=== PATIENT | female | born 1995 | race Asian ===

== ENCOUNTER 2017-04-17 14:48 | Emergency (ER) | payer MEDICAID ==
--- NOTE | 2017-04-17 16:37 | ED Physician Documentation ---
PD HPI HEENT - Stated complaint Stated Complaint: EAR PX - Chief complaint Chief Complaint: Heent - History obtained from History obtained from: Patient PD PAST MEDICAL HISTORY - Past Medical History Past Medical History: No - Past Surgical History Past Surgical History: No - Present Medications Home Medications: Ambulatory Orders Medication Instructions Recorded Confirmed Norgestimate-Ethinyl Estradiol 1 tab PO DAILY 06/10/15 04/17/17 [Ortho Tri-Cyclen 28 Tablet] - Allergies Allergies/Adverse Reactions: Allergies Allergy/AdvReac Type Severity Reaction Status Date / Time No Known Drug Allergies Allergy Verified 04/17/17 15:03 - Social History Does the pt smoke?: No Smoking Status: Never smoker Does the pt drink ETOH?: No Does the pt have substance abuse?: No - Immunizations Immunizations are current?: Yes Immunizations: TDAP current <10years - POLST Patient has POLST: No Results - Vitals Vitals: Vital Signs - 24 hr 04/17/17 15:02 Temperature 36.2 C L Heart Rate 80 Respiratory 12 Rate Blood Pressure 128/72 O2 Saturation 100 Oxygen O2 Source Room air
--- NOTE | 2017-04-17 16:58 | ED Physician Documentation ---
History of Present Illness - Stated complaint Stated Complaint: EAR PX - Chief complaint Chief Complaint: Heent - Additonal information Additional information: hx from pt recent pimple in ear and recent head congestion R ear pain for a few days denies preg Review of Systems Ears: reports: Ear pain : denies: Now EGA PD PAST MEDICAL HISTORY - Past Medical History Past Medical History: No - Past Surgical History Past Surgical History: No - Present Medications Home Medications: Ambulatory Orders Medication Instructions Recorded Confirmed Norgestimate-Ethinyl Estradiol 1 tab PO DAILY 06/10/15 04/17/17 [Ortho Tri-Cyclen 28 Tablet] Neomycin/Polymyx/Hc Otic Drops 4 drops OT QID #1 bottle 04/17/17 [Cortisporin Ear Susp] - Allergies Allergies/Adverse Reactions: Allergies Allergy/AdvReac Type Severity Reaction Status Date / Time No Known Drug Allergies Allergy Verified 04/17/17 15:03 - Social History Does the pt smoke?: No Smoking Status: Never smoker Does the pt drink ETOH?: No Does the pt have substance abuse?: No - Immunizations Immunizations are current?: Yes Immunizations: TDAP current <10years - POLST Patient has POLST: No PD ED PE NORMAL - Vitals Vital signs reviewed: Yes - HEENT HEENT: Other (R AOE, canal red and swollen and tender anterior, TM benign) - Cardiac Cardiac: RRR - Respiratory Respiratory: No respiratory distress, Clear bilaterally Results - Vitals Vitals: Vital Signs - 24 hr 04/17/17 15:02 Temperature 36.2 C L Heart Rate 80 Respiratory 12 Rate Blood Pressure 128/72 O2 Saturation 100 Oxygen O2 Source Room air Departure - Departure Disposition: Home, Self Care Clinical Impression: Otitis externa Qualifiers: Otitis externa type: unspecified type Laterality: right Chronicity: acute Qualified Code(s): H60.501 - Unspecified acute noninfective otitis externa, right ear Condition: Good Instructions: ED Otitis Externa Prescriptions: Neomycin/Polymyx/Hc Otic Drops [Cortisporin Ear Susp] 4 drops OT QID #1 bottle
[2017-04-17 17:21] VITALS: BP 123/84
== END 2017-04-17 17:19 | disposition home or self-care (01) ==
LOC: ED 14:48
DX: H60.501 Unspecified acute noninfective otitis externa, right ear (principal)
CPT/HCPCS: 99283

== ENCOUNTER 2018-05-25 21:18 | Emergency (ER) | payer MEDICAID ==
[2018-05-25 21:53] LABS: BILIRUBIN,URINE NEGATIVE (NEGATIVE); GLUCOSE, URINE (UA) NEGATIVE (NEGATIVE); KETONES,URINE (UA) NEGATIVE (NEGATIVE); LEUKOCYTE ESTERASE, URINE MODERATE (NEGATIVE); NITRITE,URINE NEGATIVE (NEGATIVE); OCCULT BLOOD,URINE LARGE (NEGATIVE); PH,URINE 6.5 PH (5.0-7.5); PROTEIN,URINE NEGATIVE (NEGATIVE); UROBILINOGEN,URINE 0.2 (NORMAL) E.U./dL (NORMAL)
--- NOTE | 2018-05-25 21:57 | ED Physician Documentation ---
PD HPI FEMALE - Stated complaint Stated Complaint: FEMALE - Chief complaint Chief Complaint: UTI - History obtained from History obtained from: Patient - History of Present Illness Timing - onset: Yesterday Timing - details: Gradual onset, Still present Associated symptoms: Dysuria, Urinary frequency Similar symptoms before: Diagnosis Recently seen: Not recently seen - Additional information Additional information: patient is a 22 year old female who is presenting to the emergency department for dysuria and increased urinary frequency. patient states that the symptoms started yesterday. patient reports that she had a uti when she was in high school and this feels the same. Review of Systems Ten Systems: 10 systems reviewed and negative Constitutional: denies: Fever, Chills : reports: Dysuria, Frequency PD PAST MEDICAL HISTORY - Past Medical History Past Medical History: No - Past Surgical History Past Surgical History: No - Present Medications Home Medications: Ambulatory Orders Medication Instructions Recorded Confirmed Norgestimate-Ethinyl Estradiol 1 tab PO DAILY 06/10/15 05/25/18 [Ortho Tri-Cyclen 28 Tablet] Phenazopyridine HCl [Pyridium] 200 mg PO TID PRN #6 tablet 05/25/18 Sulfamethox/Trimeth 800/160 1 each PO BID #10 tablet 05/25/18 [Bactrim Ds 800/160] - Allergies Allergies/Adverse Reactions: Allergies Allergy/AdvReac Type Severity Reaction Status Date / Time No Known Drug Allergies Allergy Verified 05/25/18 21:42 - Social History Does the pt smoke?: No Smoking Status: Never smoker Does the pt drink ETOH?: No Does the pt have substance abuse?: No - Immunizations Immunizations are current?: Yes Immunizations: TDAP current <10years - POLST Patient has POLST: No PD ED PE NORMAL - Vitals Vital signs reviewed: Yes - General General: Alert and oriented X 3, No acute distress - HEENT HEENT: Atraumatic - Cardiac Cardiac: RRR - Respiratory Respiratory: No respiratory distress - Abdomen Abdomen: Non distended - Derm Derm: Normal color, Warm and dry - Extremities Extremities: No deformity - Neuro Eye Opening: Spontaneous Results - Vitals Vitals: Vital Signs - 24 hr 05/25/18 21:39 Temperature 36.4 C L Heart Rate 87 Respiratory 16 Rate Blood Pressure 131/69 H O2 Saturation 100 Oxygen O2 Source Room air - Labs Labs: Laboratory Tests 05/25/18 21:40 Urine Color YELLOW Urine Clarity CLEAR Urine pH 6.5 Ur Specific [place] <=1.005 Urine Protein NEGATIVE Urine Glucose (UA) NEGATIVE Urine Ketones NEGATIVE Urine Occult Blood LARGE H Urine Nitrite NEGATIVE Urine Bilirubin NEGATIVE Urine Urobilinogen 0.2 (NORMAL) Ur Leukocyte Esterase MODERATE H Urine RBC 0-5 Urine WBC 11-25 H Urine WBC Clumps PRESENT Ur Squamous Epith Cells FEW Squamous Urine Bacteria None Seen Ur Microscopic Review INDICATED Urine Culture Comments INDICATED Urine HCG, Qual NEGATIVE PD MEDICAL DECISION MAKING - ED course Complexity details: reviewed old records, reviewed results, re-evaluated patient , considered differential, d/w patient ED course: Patient was seen and examined at bedside. patient's urine was collected and consistent with urinary tract infection. Patient was treated with bactrim and pyridium. Patient required no further work up and was stable for discharge with outpatient follow up. - Sepsis Event Vital Signs: Vital Signs - 24 hr 05/25/18 21:39 Temperature 36.4 C L Heart Rate 87 Respiratory 16 Rate Blood Pressure 131/69 H O2 Saturation 100 Oxygen O2 Source Room air Departure - Departure Disposition: 01 Home, Self Care Clinical Impression: Urinary tract infection Condition: Good Instructions: ED UTI Cystitis Female Follow-Up: primary,care provider [Other] - As Needed Prescriptions: Phenazopyridine HCl [Pyridium] 200 mg PO TID PRN #6 tablet PRN Reason: dysuria Sulfamethox/Trimeth 800/160 [Bactrim Ds 800/160] 1 each PO BID #10 tablet Comments: Your symptoms today are being caused by a urinary tract infection. you had your first dose of antibiotics and you will need to be on them for the next 5 days. you should stay well hydrated. you should follow up with doctor if your symptoms don't improve. you may return to the emergency department at any time for new, worsening or uncontrollable symptoms.
[2018-05-25 22:00] LABS: CLARITY,URINE CLEAR (CLEAR); HCG UR QUAL NEGATIVE
[2018-05-25 22:03] LABS: BACTERIA,URINE None Seen /HPF (None Seen); RBC,URINE 0-5 /HPF (0-5); SQUAMOUS EPITHELIAL CELL,UR FEW Squamous (<= Few); WBC CLUMPS,URINE PRESENT
[2018-05-25] MEDS ORDERED: PHENAZOPYRIDINE 100 MG TABLET PO STA (22:22)
[2018-05-25] MEDS ORDERED: SULFAMETH/TRIMETH DS 800/160 MG TABLET PO STA (22:22)
[2018-05-25 22:32] VITALS: BP 112/70
== END 2018-05-25 22:42 | disposition home or self-care (01) ==
LOC: ED 21:18
DX: N39.0 Urinary tract infection, site not specified (principal)
CPT/HCPCS: 81001; 81025; 87077; 87086; 87181; 99283; A9270; 81003

== ENCOUNTER 2018-06-07 11:29 | Emergency (ER) | payer MEDICAID ==
[2018-06-07 12:07] LABS: BILIRUBIN,URINE NEGATIVE (NEGATIVE); GLUCOSE, URINE (UA) NEGATIVE (NEGATIVE); KETONES,URINE (UA) NEGATIVE (NEGATIVE); LEUKOCYTE ESTERASE, URINE NEGATIVE (NEGATIVE); NITRITE,URINE NEGATIVE (NEGATIVE); OCCULT BLOOD,URINE NEGATIVE (NEGATIVE); PH,URINE 7.5 PH (5.0-7.5); PROTEIN,URINE NEGATIVE (NEGATIVE); UROBILINOGEN,URINE 0.2 (NORMAL) E.U./dL (NORMAL)
[2018-06-07 12:09] LABS: CLARITY,URINE CLEAR (CLEAR); HCG UR QUAL NEGATIVE
--- NOTE | 2018-06-07 12:41 | ED Physician Documentation ---
PD HPI ABD PAIN - Stated complaint Stated Complaint: ABD PX/CRAMPING - Chief complaint Chief Complaint: Abd Pain - History obtained from History obtained from: Patient - History of Present Illness Timing - onset: How many days ago (few) Timing - duration: Days (few) Timing - details: Gradual onset, Still present, Waxing and waning Quality: Cramping, Aching Location: Suprapubic, LLQ Radiation: No: Lower back Improved by: Meds (ibuprofen). No: Eating, BM Worsened by: No: Eating, Breathing, Position Associated symptoms: No: Fever, Nausea, Vomiting, Diarrhea, Dysuria (she had had that couple weeks ago and was Rx with Bactrim then changed to ?Keflex after culture results. Says the dysuria improved and was well. Has been done with abx for few days prior to onset of the current abd cramping.), Weight loss Similar symptoms before: Has not had sx before Recently seen: Emergency Dept (for UTI symptoms) Review of Systems Constitutional: denies: Fever, Chills, Myalgias Nose: denies: Rhinorrhea / runny nose, Congestion Throat: denies: Sore throat Respiratory: denies: Dyspnea, Cough : reports: LMP (2 weeks ago). denies: Discharge, Vaginal bleeding, Missed period Skin: denies: Rash, Lesions PD PAST MEDICAL HISTORY - Past Medical History Cardiovascular: None Respiratory: None Neuro: None MATE SHIP: None - Past Surgical History Past Surgical History: No - Present Medications Home Medications: Ambulatory Orders Medication Instructions Recorded Confirmed Norgestimate-Ethinyl Estradiol 1 tab PO DAILY 06/10/15 05/25/18 [Ortho Tri-Cyclen 28 Tablet] Docusate Sodium 100 mg PO DAILY #15 capsule 06/07/18 Fluconazole [Diflucan] 150 mg PO ONCE #1 tablet 06/07/18 - Allergies Allergies/Adverse Reactions: Allergies Allergy/AdvReac Type Severity Reaction Status Date / Time No Known Drug Allergies Allergy Verified 06/07/18 11:36 - Social History Does the pt smoke?: No Smoking Status: Never smoker Does the pt drink ETOH?: No Does the pt have substance abuse?: No - Immunizations Immunizations are current?: Yes Immunizations: TDAP current <10years - POLST Patient has POLST: No PD ED PE NORMAL - Vitals Vital signs reviewed: Yes - General General: Alert and oriented X 3, No acute distress, Well developed/nourished - HEENT HEENT: Pharynx benign - Neck Neck: Supple, no meningeal sign, No adenopathy - Cardiac Cardiac: RRR, No murmur - Respiratory Respiratory: Clear bilaterally - Abdomen Abdomen: Normal bowel sounds, Soft, Non distended - Female Female : Staff Consultant present, Other (external normal. vault with a lot of thicker white discharge and some cerivcal irritation that looks like yeast infection. ) - Rectal Rectal: Deferred - Back Back: No CVA TTP Results - Vitals Vitals: Vital Signs - 24 hr 06/07/18 06/07/18 11:33 15:19 Temperature 36.7 C Heart Rate 79 71 Respiratory 16 12 Rate Blood Pressure 107/55 L 108/65 O2 Saturation 99 100 Oxygen O2 Source Room air - Labs Labs: Microbiology 06/07/18 16:39 Wet Prep - Final Vaginal Laboratory Tests 06/07/18 11:44 Urine Color YELLOW Urine Clarity CLEAR Urine pH 7.5 Ur Specific [place] 1.015 Urine Protein NEGATIVE Urine Glucose (UA) NEGATIVE Urine Ketones NEGATIVE Urine Occult Blood NEGATIVE Urine Nitrite NEGATIVE Urine Bilirubin NEGATIVE Urine Urobilinogen 0.2 (NORMAL) Ur Leukocyte Esterase NEGATIVE Ur Microscopic Review NOT INDICATED Urine Culture Comments NOT INDICATED Urine HCG, Qual NEGATIVE PD MEDICAL DECISION MAKING - ED course Complexity details: reviewed results (there is 3 cm ovarian cyst but no signs of free fluid. This is small and so less likely to cause the pelvic/abd pains. Pelvic does show a lot of discharge that is thick and white c/w yeast and some mild appearance of cervicitis. She had had constipation too for several days and that can be giving the lower/left abd cramps. No suspicion for appendix nor gallbladder. ), considered differential, d/w patient - Sepsis Event Vital Signs: Vital Signs - 24 hr 06/07/18 06/07/18 11:33 15:19 Temperature 36.7 C Heart Rate 79 71 Respiratory 16 12 Rate Blood Pressure 107/55 L 108/65 O2 Saturation 99 100 Oxygen O2 Source Room air Departure - Departure Disposition: 01 Home, Self Care Clinical Impression: Pelvic pain, Yeast vaginitis Constipation Qualifiers: Constipation type: unspecified constipation type Qualified Code(s): K59.00 - Constipation, unspecified Ovarian cyst Qualifiers: Laterality: left Qualified Code(s): N83.202 - Unspecified ovarian cyst, left side Condition: Stable Record reviewed to determine appropriate education?: Yes Instructions: ED Vaginal Infec Fungal Rosalind Follow-Up: Nemesio Carpenter MD [Primary Care Provider] - Prescriptions: Docusate Sodium 100 mg PO DAILY #15 capsule Fluconazole [Diflucan] 150 mg PO ONCE #1 tablet Comments: There is a small 3 cm cyst on the left side actually on your ultrasound though it looks like a simple cyst and is small sized and no signs of leaking or rupture so I do not think that is the cause of your pain. You do have what appears to be a yeast vaginitis and this is more likely to be irritating the uterus and causing some pains. This would be a common consequence from the recent antibiotics. You were given an antifungal tablet here and you can repeat that in 3 or 4 days. I would also use docusate and drink lots of fluids for the constipation. This may be causing some of the cramping and pains as well. Recheck if not improved over the next couple of days. Use ibuprofen 3 times a day as needed for pains. Forms: Activity restrictions Discharge Date/Time: 06/07/18 17:02
[2018-06-07 15:21] VITALS: BP 108/65
--- NOTE | 2018-06-07 15:37 | Ultrasound Report ---
Procedure Date: 06/07/2018 Accession Number: [id number] / [id number] Procedure: US - Pelvic w/Transvag+Doppler Ltd CPT Code: FULL RESULT: EXAM: PELVIC ULTRASOUND EXAM DATE: 06/07/2018 03:09 PM. CLINICAL HISTORY: Lower abd pain for few days. COMPARISON: None. TECHNIQUE: Realtime transabdominal pelvic scan performed to identify the uterus and adnexa and as an overview of other pelvic structures, followed by transvaginal scan to provide greater detail of the uterus and adnexa, with static image documentation. FINDINGS: Uterus: 8.7 x 5.9 x 3.3 cm, volume 88.5 cc. Anteverted position. The myometrium is heterogeneous without a focal mass. Masses: None. Endometrium: 4.4 mm. Normal. Cervix: Unremarkable. Right Ovary: 2.9 x 1.5 x 1.6 cm, volume 3.6 cc. Normal echotexture and blood flow. Left Ovary: 4.3 x 4.1 x 3.1 cm, volume 28.5 cc. There is an anechoic follicle or simple cyst measuring 3.4 x 3.7 x 2.7 cm. Blood flow is present on Doppler. Free Fluid: Small Other: None. IMPRESSION: 1. Dominant follicle or simple cyst in left ovary measuring 3. 7 cm in maximum diameter. 2. Blood flow present in both ovaries. RADIA
[2018-06-07] MEDS ORDERED: DOCUSATE SODIUM 100 MG CAPSULE PO STA (16:45)
[2018-06-07] MEDS ORDERED: FLUCONAZOLE 100 MG TABLET PO STA (16:45)
== END 2018-06-07 17:02 | disposition home or self-care (01) ==
LOC: ED 11:29
DX: R10.2 Pelvic and perineal pain (principal); B37.3 Candidiasis of vulva and vagina; K59.00 Constipation, unspecified; N83.202 Unspecified ovarian cyst, left side
CPT/HCPCS: 76830; 76856; 81003; 81025; 87210; 87491; 87591; 93976; 99283; A9270; 80048; 81001; 87086

== ENCOUNTER 2018-06-13 18:11 | Emergency (ER) | payer MEDICAID ==
--- NOTE | 2018-06-13 18:35 | ED Physician Documentation ---
PD HPI ABD PAIN - Stated complaint Stated Complaint: Constipated - Chief complaint Chief Complaint: Abd Pain - History obtained from History obtained from: Patient - History of Present Illness Timing - onset: Other (This is a previously healthy newly 22-year-old whose had lower abdominal pain for a week and a half. She was seen here about a week ago, at that time it had been going on for 4 days and she had not had a bowel movement in those 4 days. She had urinalyses which were normal, STD tests and swabs that were normal. Also a pelvic ultrasound that was normal. The pain went away, and she was taking stool softeners but she still has not had a good BM. She describes small BMs about twice a day a very soft consistency. But she feels full. The lower abdominal pain recurred today. She has not had fever or loss of appetite. No vomiting.) Review of Systems Ten Systems: 10 systems reviewed and negative Constitutional: denies: Fever, Chills Respiratory: denies: Dyspnea, Cough GI: reports: Abdominal Pain, Constipation. denies: Nausea, Vomiting, Diarrhea, Hematemesis, Bloody / black stool : denies: Dysuria, Frequency PD PAST MEDICAL HISTORY - Past Medical History Cardiovascular: None Respiratory: None Neuro: None TARE WORKER: None - Past Surgical History Past Surgical History: No - Present Medications Home Medications: Ambulatory Orders Medication Instructions Recorded Confirmed Norgestimate-Ethinyl Estradiol 1 tab PO DAILY 06/10/15 05/25/18 [Ortho Tri-Cyclen 28 Tablet] Docusate Sodium 100 mg PO DAILY #15 capsule 06/07/18 Fluconazole [Diflucan] 150 mg PO ONCE #1 tablet 06/07/18 Polyethylene Glycol 3350 [Miralax] 17 gm PO DAILY PRN #1 bottle 06/13/18 - Allergies Allergies/Adverse Reactions: Allergies Allergy/AdvReac Type Severity Reaction Status Date / Time No Known Drug Allergies Allergy Verified 06/07/18 11:36 - Social History Does the pt smoke?: No Smoking Status: Never smoker Does the pt drink ETOH?: No Does the pt have substance abuse?: No - Family History Family history: reports: Non contributory - Immunizations Immunizations are current?: Yes Immunizations: TDAP current <10years - POLST Patient has POLST: No PD ED PE NORMAL - Vitals Vital signs reviewed: Yes - General General: Alert and oriented X 3, No acute distress - HEENT HEENT: PERRL, EOMI - Neck Neck: Supple, no meningeal sign, No bony TTP - Cardiac Cardiac: RRR, No murmur - Respiratory Respiratory: No respiratory distress, Clear bilaterally - Abdomen Abdomen: Normal bowel sounds, Soft, Other (Focal tenderness in the right lower quadrant without guarding or rebound) - Back Back: No CVA TTP, No spinal TTP - Derm Derm: Normal color, Warm and dry - Extremities Extremities: No edema, No calf tenderness / cord - Neuro Neuro: Alert and oriented X 3, Normal speech Results - Vitals Vitals: Vital Signs - 24 hr 06/13/18 06/13/18 18:15 19:54 Temperature 36.6 C 36.8 C Heart Rate 78 76 Respiratory 17 20 Rate Blood Pressure 119/79 118/76 O2 Saturation 100 99 Oxygen O2 Source Room air - Labs Labs: Laboratory Tests 06/13/18 06/13/18 06/13/18 18:40 18:40 18:53 WBC 5.9 RBC 4.34 Hgb 12.7 Hct 38.4 MCV 88.5 MCH 29.3 MCHC 33.1 RDW 13.1 Plt Count 366 MPV 8.7 Neut # (Auto) 2.9 Lymph # (Auto) 2.2 Pepin # (Auto) 0.5 Eos # (Auto) 0.2 Baso # (Auto) 0.0 Absolute Nucleated RBC 0.01 Nucleated RBC % 0.1 Sodium 136 Potassium 3.9 Chloride 106 Carbon Dioxide 25 Anion Gap 5.0 L BUN 14 Creatinine 0.6 Estimated GFR (MDRD) 124 Glucose 108 H Calcium 8.5 Total Bilirubin 0.2 AST 18 ALT 12 Alkaline Phosphatase 49 Total Protein 7.7 Albumin 4.1 Globulin 3.6 Albumin/Globulin Ratio 1.1 Lipase 34 Urine Color YELLOW Urine Clarity HAZY Urine pH 6.0 Ur Specific [place] 1.025 Urine Protein NEGATIVE Urine Glucose (UA) NEGATIVE Urine Ketones NEGATIVE Urine Occult Blood SMALL H Urine Nitrite NEGATIVE Urine Bilirubin NEGATIVE Urine Urobilinogen 0.2 (NORMAL) Ur Leukocyte Esterase NEGATIVE Urine RBC 0-5 Urine WBC 0-3 Ur Squamous Epith Cells MANY Squamous H Urine Bacteria Many H Ur Microscopic Review INDICATED Urine Culture Comments NOT INDICATED Urine HCG, Qual NEGATIVE - Rads (name of study) CT A/P Radiology: EMP read contemporaneously (normal) PD MEDICAL DECISION MAKING - ED course ED course: 22-year-old with abdominal pain and sensation of constipation, some right lower quadrant tenderness but her diagnostics including CT imaging and labs are normal. We will treat for constipation, but primary care follow-up was advised. - Sepsis Event Vital Signs: Vital Signs - 24 hr 06/13/18 06/13/18 18:15 19:54 Temperature 36.6 C 36.8 C Heart Rate 78 76 Respiratory 17 20 Rate Blood Pressure 119/79 118/76 O2 Saturation 100 99 Oxygen O2 Source Room air Departure - Departure Disposition: 01 Home, Self Care Clinical Impression: Abdominal pain, Constipation Condition: Good Record reviewed to determine appropriate education?: Yes Instructions: ED Constipation, ED Abdominal Pain Unkn Cause Prescriptions: Polyethylene Glycol 3350 [Miralax] 17 gm PO DAILY PRN #1 bottle PRN Reason: Constipation Comments: Call your doctor to arrange a follow-up appointment, make the next available appointment. In the interim, return anytime if worse or if new symptoms develop.
[2018-06-13] MEDS ORDERED: IOPAMIDOL-300 100 ML VIAL ONE (18:54)
[2018-06-13 19:00] LABS: ALBUMIN 4.1 g/dL (3.2-5.5); ALBUMIN/GLOBULIN RATIO 1.1 (1.0-2.2); BILIRUBIN,TOTAL 0.2 mg/dL (0.2-1.0); CALCIUM 8.5 mg/dL (8.5-10.3); CREATININE 0.6 mg/dL (0.4-1.0); TOTAL PROTEIN 7.7 g/dL (6.7-8.2)
[2018-06-13 19:06] LABS: BILIRUBIN,URINE NEGATIVE (NEGATIVE); GLUCOSE, URINE (UA) NEGATIVE (NEGATIVE); KETONES,URINE (UA) NEGATIVE (NEGATIVE); LEUKOCYTE ESTERASE, URINE NEGATIVE (NEGATIVE); NITRITE,URINE NEGATIVE (NEGATIVE); OCCULT BLOOD,URINE SMALL (NEGATIVE); PROTEIN,URINE NEGATIVE (NEGATIVE); UROBILINOGEN,URINE 0.2 (NORMAL) E.U./dL (NORMAL)
[2018-06-13 19:09] LABS: BASOPHILS % (AUTO) 0.8 %; EOSINOPHILS # (AUTO) 0.2 10^3/uL (0.0-0.7); EOSINOPHILS % (AUTO) 2.7 %; HGB - HEMOGLOBIN 12.7 g/dL (12.0-16.0); LYMPHOCYTES # (AUTO) 2.2 10^3/uL (1.5-3.5); LYMPHOCYTES % (AUTO) 38.4 %; MEAN CORPUSCULAR HEMOGLOBIN 29.3 pg (27.0-31.0); MEAN CORPUSCULAR HGB CONC 33.1 g/dL (32.0-36.0); MEAN CORPUSCULAR VOLUME 88.5 fL (81.0-99.0); MEAN PLATELET VOLUME 8.7 fL (7.9-10.8); MONOCYTES # (AUTO) 0.5 10^3/uL (0.0-1.0); MONOCYTES % (AUTO) 8.3 %; NEUTROPHILS # (AUTO) 2.9 10^3/uL (1.5-6.6); NEUTROPHILS % (AUTO) 49.8 %; PLT - PLATELET COUNT 366 10^3/uL (130-450); RED BLOOD COUNT 4.34 10^6/uL (4.20-5.40); RED CELL DISTRIBUTION WIDTH 13.1 % (12.0-15.0); WHITE BLOOD COUNT 5.9 x10^3/uL (4.8-10.8)
[2018-06-13 19:10] LABS: CLARITY,URINE HAZY (CLEAR); HCG UR QUAL NEGATIVE
[2018-06-13 19:13] LABS: BACTERIA,URINE Many /HPF (None Seen); RBC,URINE 0-5 /HPF (0-5); SQUAMOUS EPITHELIAL CELL,UR MANY Squamous (<= Few)
[2018-06-13] MEDS ORDERED: IOPAMIDOL-300 100 ML VIAL IVP ONE (19:44)
[2018-06-13 19:55] VITALS: BP 118/76
--- NOTE | 2018-06-13 20:11 | CT Report ---
Procedure Date: 06/13/2018 Accession Number: [id number] / [id number] Procedure: CT - Abdomen/Pelvis W/ CPT Code: FULL RESULT: EXAM: CT ABDOMEN AND PELVIS EXAM DATE: 06/13/2018 07:54 PM. CLINICAL HISTORY: Low abdominal pain COMPARISONS: None. TECHNIQUE: Routine helical CT imaging was performed through the abdomen and pelvis. IV contrast: ISOVUE 300 100mL. Enteric contrast: No. Reconstructions: Coronal and sagittal. In accordance with CT protocol optimization, one or more of the following dose reduction techniques were utilized for this exam: automated exposure control, adjustment of mA and/or KV based on patient size, or use of iterative reconstructive technique. FINDINGS: Lung Bases: Unremarkable. Liver: Normal. No masses. Gallbladder/Bile Ducts: Unremarkable. Spleen: Normal. Pancreas: Normal. Adrenal Glands: Normal. Kidneys: Normal. No masses or hydronephrosis. Peritoneal Cavity/Bowel: Normal. No free fluid, free air or adenopathy. No masses or acute inflammatory process. The appendix is well visualized and normal. Pelvic Organs: Normal. The bladder and visualized pelvic organs are within normal limits. Vasculature: No aneurysms or other significant abnormality. Bones: No significant abnormality. Other: None. IMPRESSION: Normal abdomen and pelvis CT. RADIA
[2018-06-13] MEDS ORDERED: MAGNESIUM CITRATE 296 ML BOTTLE PO STA (20:14)
== END 2018-06-13 20:22 | disposition home or self-care (01) ==
LOC: ED 18:11
DX: K59.00 Constipation, unspecified (principal)
CPT/HCPCS: 36415; 74177; 80053; 81001; 81025; 83690; 85025; 99283; A9270; Q9967; 81003; 87086

== ENCOUNTER 2020-09-09 10:57 | Emergency (ER) | payer MEDICAID, OTHER ==
[2020-09-09 11:09] VITALS: BP 132/86
[2020-09-09] MEDS ORDERED: BACITRACIN ZINC OINT 1 PACKET TOP STA (11:09)
[2020-09-09] MEDS ORDERED: HYDROcod/ACETAM 5/325 MG TABLET PO STA (11:09)
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
== END 2020-09-09 11:22 | disposition home or self-care (01) ==
LOC: ED 10:57
DX: T20.20XA Burn of second degree of head, face, and neck, unspecified site, initial encounter (principal); T31.0 Burns involving less than 10% of body surface; X15.0XXA Contact with hot stove (kitchen), initial encounter; Y92.511 Restaurant or cafe as the place of occurrence of the external cause; Y99.0 Civilian activity done for income or pay
CPT/HCPCS: 1040M; 99282; 99283; A9270